=== PATIENT | female | born 1985 | race Caucasian/White ===

== ENCOUNTER 2019-04-01 22:53 | Emergency (ER) | payer MEDICAID ==
[~2019-04-01] VITALS: Ht 162.6 cm; Wt 61.2 kg
[2019-04-01 23:09] VITALS: BP 145/92
== END 2019-04-02 00:34 | disposition home or self-care (01) ==
LOC: ED 04-02 00:25
DX: A56.01 Chlamydial cystitis and urethritis (principal); A51.0 Primary genital syphilis; A54.01 Gonococcal cystitis and urethritis, unspecified
CPT/HCPCS: 36415; 81025; 86592; 87491; 87591; 96372; 99283; J0561; J0696

== ENCOUNTER 2019-04-16 17:34 | Emergency (ER) | payer MEDICAID ==
[~2019-04-16] VITALS: Ht 162.6 cm; Wt 59.4 kg
[~2019-04-16 17:34] MED LIST: DOCU-131 PO; FERR325T18 PO; IBUP-1222 PO; OXYC-302 PO
[2019-04-16 18:37] LABS: BASOPHILS # (AUTO) 0.04 x10^3/uL (0-0.1); BASOPHILS % (AUTO) 1 % (0-1); EOSINOPHILS # (AUTO) 0.06 x10^3/uL (0-0.4); EOSINOPHILS % (AUTO) 1 % (1-7); LYMPHOCYTES # (AUTO) 2.11 x10^3/uL (1-3.4); LYMPHOCYTES % (AUTO) 26 % (22-44); MD NO; MEAN CORPUSCULAR HEMOGLOBIN 33.1 pg (27.0-34.8); MEAN CORPUSCULAR HGB CONC 34.2 g/dL (32.4-35.8); MEAN CORPUSCULAR VOLUME 96.7 fL (80-100); MEAN PLATELET VOLUME 6.7 fL (7.4-10.4); MONOCYTES # (AUTO) 0.37 x10^3/uL (0.2-0.8); MONOCYTES % (AUTO) 5 % (2-9); NEUTROPHILS # (AUTO) 5.59 x10^3/uL (1.8-6.8); NEUTROPHILS % (AUTO) 68 % (42-75); PLATELET COUNT 386 x10^3/uL (130-400); RED BLOOD COUNT 4.72 x10^6/uL (3.82-5.3); RED CELL DISTRIBUTION WIDTH 12.7 % (9.6-15.2)
[2019-04-16 18:47] LABS: ALBUMIN 4.1 g/dL (3.4-5.0); ANION GAP 8 mmol/L (5-15); CALCIUM 9.2 mg/dL (8.5-10.1); CHLORIDE 110 mmol/L (98-107); CREATININE 0.88 mg/dL (0.55-1.02)
--- NOTE | 2019-04-16 19:30 | NUR ---
PT INTO ROOM AND ASSUMED CARE AT THIS TIME
[2019-04-16 20:04] VITALS: BP 116/72
--- NOTE | 2019-04-16 20:45 | NUR ---
PT AMBULATORY OUT OF THE ED W/ [employer] HELPER AT THIS TIME. PT WOULD NOT STOP TO DISCUSS POC, PT HAS NOT BEEN TO ULTRASOUND TO THIS RN KNOWLEDGE. DISCUSSED W/ ERMD AND CHARGE NURSE.
== END 2019-04-16 20:48 | disposition left against medical advice (07) ==
LOC: ED 20:42
DX: N93.8 Other specified abnormal uterine and vaginal bleeding (principal); F17.200 Nicotine dependence, unspecified, uncomplicated
CPT/HCPCS: 36415; 80048; 82040; 84703; 85025; 99283

== ENCOUNTER 2020-10-30 09:17 | Emergency (ER) | payer MEDICAID ==
[~2020-10-30] VITALS: Ht 162.6 cm; Wt 64.6 kg
[~2020-10-30 09:17] MED LIST changes: -OXYC-302 PO; +OXYC1TAB14 PO
[2020-10-30] MEDS ORDERED: ONDANSETRON 2MG/ML, 2ML IVPush ONE (10:00)
[2020-10-30] MEDS ORDERED: MORPHINE SULFATE 4 MG/ML, 1ML IVPush PRN (10:00)
[2020-10-30] MEDS ORDERED: SODIUM CHLORIDE 0.9% 1,000ML IVBOLUS ONE (10:00)
--- NOTE | 2020-10-30 10:05 | NUR ---
attempted to enter room to assess pt, pt in RAD
--- NOTE | 2020-10-30 10:15 | NUR ---
pt made aware that urine sample is needed. pt rpeorts that she is unable to provide urine sample at this time as she had to urinate for US
--- NOTE | 2020-10-30 10:15 | NUR ---
pt here c/o vaginal bleedign for several days. pt reports that she has been having heavier than ususal bleeding today, and that for the last couple of days she has been passing large clots. pt denies . states that she has been having painful urination and increased frequency. pt states that she is unable to give urine sample at this time
[2020-10-30 10:41] LABS: BASOPHILS % (AUTO) 1 % (0-1); EOSINOPHILS % (AUTO) 0 % (1-7); LYMPHOCYTES % (AUTO) 10 % (22-44); MEAN CORPUSCULAR HEMOGLOBIN 33.5 pg (27.0-34.8); MEAN CORPUSCULAR HGB CONC 34.6 g/dL (32.4-35.8); MEAN PLATELET VOLUME 6.9 fL (7.4-10.4); MONOCYTES % (AUTO) 6 % (2-9); NEUTROPHILS % (AUTO) 83 % (42-75); PLATELET COUNT 345 x10^3/uL (130-400); RED BLOOD COUNT 3.93 x10^6/uL (3.82-5.3)
[2020-10-30 10:42] LABS: MD NO
[2020-10-30 10:48] LABS: ALBUMIN 3.3 g/dL (3.4-5.0); ANION GAP 9 mmol/L (5-15); CALCIUM 8.3 mg/dL (8.5-10.1); CHLORIDE 106 mmol/L (98-107); CREATININE 0.66 mg/dL (0.55-1.02)
--- NOTE | 2020-10-30 11:00 | NUR ---
pt reports that she is still unable to provide urine sample at this time. pt requesting food. pt advised of NPO status. pt verbalized understanding
[2020-10-30] MEDS ORDERED: ONDANSETRON 2MG/ML, 2ML ONE (11:02)
[2020-10-30] MEDS ORDERED: MORPHINE SULFATE 4 MG/ML, 1ML ONE (11:03)
--- NOTE | 2020-10-30 11:10 | NUR ---
pt has been medicated for pain. pt reports that she did not drive herself here pt advised not to drive after morphine. pt verbalized understanding
--- NOTE | 2020-10-30 12:35 | NUR ---
pt reports reduction of pain after meds. resting on her side in position of comfort. pt updated on POC. awaiting to go to CT scan
--- NOTE | 2020-10-30 12:36 | NUR ---
report to Keiko BATES for lunch
--- NOTE | 2020-10-30 12:42 | NUR ---
BREAK RN: PT AT CT. PT AWARE OF NEED FOR URINE SAMPLE UPON RETURN.
[2020-10-30] MEDS ORDERED: OMNIPAQUE 350 MG/ML, 100ML BOTTLE ONE (12:51)
--- NOTE | 2020-10-30 13:00 | NUR ---
BREAK RN: PT BACK FROM CT. PT PROVIDED URINE SAMPLE. UA COLLECTED AND SENT TO LAB.
[2020-10-30 13:09] LABS: MICROSCOPIC AUTO
--- NOTE | 2020-10-30 13:14 | NUR ---
BREAK RN: ALL RESULTS ARE BACK AT THIS TIME. CHART UP FOR RECHECK. REPORT BACK TO PRIMARY RN.
[2020-10-30 13:52] VITALS: BP 127/83
== END 2020-10-30 13:56 | disposition home or self-care (01) ==
LOC: ED 09:47
DX: N30.00 Acute cystitis without hematuria (principal); R10.30 Lower abdominal pain, unspecified; R11.0 Nausea; R42 Dizziness and giddiness; F17.290 Nicotine dependence, other tobacco product, uncomplicated; Z98.51 Tubal ligation status
CPT/HCPCS: 36415; 74177; 76830; 80048; 81001; 82040; 84703; 85025; 86901; 87077; 87086; 96361; 96374; 96375; 99285; J2270; J2405; J7030; Q9967; 87186

== ENCOUNTER 2021-03-20 22:16 | Emergency (ER) | payer MEDICAID ==
--- NOTE | 2021-03-20 22:57 | NUR ---
NIL X 1
--- NOTE | 2021-03-20 23:02 | NUR ---
PT. SIGNED PAPERWORK WITH REGISTRATION TO REQUEST DISCHARGE PRIOR TO BEING TRIAGED.
== END 2021-03-20 23:02 | disposition left against medical advice (07) ==
LOC: ED 23:01
DX: R52 Pain, unspecified (principal); Z53.21 Procedure and treatment not carried out due to patient leaving prior to being seen by health care provider